=== PATIENT | female | born 1970 | race Caucasian/White ===

== ENCOUNTER 2023-08-21 16:44 | Emergency (ER) | payer OTHER, SELFPAY ==
--- NOTE | ~2023-08-21 | XR_ITS ---
EXAMINATION: XR FOOT, RIGHT CLINICAL INFORMATION: Fifth metatarsal pain COMPARISON: None available. TECHNIQUE: AP, lateral, and oblique views of the right foot. FINDINGS: There is a small calcaneal heel and retrocalcaneal enthesophytes. The ankle mortise and subtalar joints are normal. There is no visible acute fracture, dislocation or subluxation seen. The soft tissues are normal. XR/XR foot RT min 3V IMPRESSION: Small calcaneal heel and retrocalcaneal enthesophytes. No visible acute fracture, dislocation or subluxation seen.
[2023-08-21 17:13] VITALS: BP 146/78; PULSE 65; RESP 18; TEMP 35.9; O2SAT 95; BMI 28.7
--- NOTE | 2023-08-21 17:19 | ED.LOWEXIN ---
HPI - Extremity Injury (Lower) General Chief Complaint: Extremity Injury, Lower Stated Complaint: right foot pain no inj. Time Seen by Provider: 08/21/23 19:41 Source: patient Mode of arrival: ambulatory Limitations: no limitations History of Present Illness HPI Narrative: 52 yo female with PMH of surgery 2 years ago on the R ankle denies trauma but has severe pain to R 5th metatarsal without known injury x 2 days with swelling. No fevers, no redness. Hurts to touch and walk. She normally follows up with [facility] complaint: other (foot pain) Onset (ago): day(s) (2) Injury: Right: foot Place: home Severity: moderate Relieving factors: rest Exacerbating factors: weight bearing, movement and palpation Context: other (unknown) Associated symptoms: swelling Other symptoms: none Related Data Previous Rx's Medication Instructions Recorded morphine 15 mg immediate release 15 mg PO Q6H PRN pain #10 tabs 08/21/23 tablet Allergies Allergy/AdvReac Type Severity Reaction Status Date / Time No Known Allergies Allergy Verified 08/21/23 17:19 Review of Systems Review of Systems: Constitutional : No Fever, No Chills Cardiovascular : No Chest Pain, No SOB Respiratory : No Cough, No Dyspnea Gastrointestinal : No Nausea, No Vomiting, No Diarrhea, No abdominal Pain Genitourinary : No Dysuria, No Hematuria Musculoskeletal : positive joint pain, No Myalgias, pos Joint Swelling Skin : No Skin lacerations, No rash Neuro : No Weakness, No Numbness, No Loss of Consciousness, No Dizziness, No Headache Psych : No Anxiety/Panic, No Depression All other systems reviewed and are negative [facility] Past Medical History Attestation statement: The following information was validated with the patient. Source: old records reviewed Medical History Heel spur Surgical History History of ankle surgery Social History Social History Smoked in Last 30 Days: No Use of substances other than those prescribed or required for medical reasons: No Advance Directives: No Advance Directives Information Provided: No Physical Exam Vital Signs: Vital Signs: Last Vital Signs Temp 97 F 08/21/23 20:05 Pulse 59 08/21/23 20:05 Resp 16 08/21/23 20:05 BP 153/62 H 08/21/23 20:05 Pulse Ox 98 08/21/23 20:05 O2 Del Method Room Air 08/21/23 20:05 BMI result Body Mass Index 28.7 Appearance: Alert. Oriented X3. No acute distress. Eyes: Pupils equal, round and reactive to light. ENT: Pharynx normal. Neck: Normal inspection. Neck supple. CVS: Normal heart rate and rhythm. Pulses normal. Respiratory: No respiratory distress. Breath sounds normal. Abdomen: atraumatic Skin: Skin warm and dry. Normal skin color. Normal skin turgor. Extremities: No lower extremity edema. R lateral 5th metatarsal ttp no redness no warmth mild swelling noted - distal NV intact Neuro: Oriented X 3. No motor deficit. No sensory deficit. Course Course Course Narrative: This is an RME: Additional HPI, ROS, PE not included below will be deferred to primary provider. This is a 52-year-old female, with a history of CADASIL, presenting to the emergency department with complaints of right foot pain since today. She states that she stepped and immediately felt pain in her right 5th metatarsal. Tenderness to palpation in this area, ambulating with antalgic gait. Plan: X-ray right foot Medications Administered Discontinued Medications Generic Name Dose Route Start Last Admin Trade Name Freq PRN Reason Stop Dose Admin Acetaminophen 975 mg 08/21/23 19:57 08/21/23 20:03 Acetaminophen 325 Mg Tablet PO 08/21/23 19:58 975 mg ONCE ONE Administration Cyclobenzaprine HCl 10 mg 08/21/23 19:57 08/21/23 20:02 Cyclobenzaprine Hcl 10 Mg Tablet PO 08/21/23 19:58 10 mg ONCE ONE Administration Oxycodone HCl 10 mg 08/21/23 19:57 08/21/23 20:03 Oxycodone Hcl Immed Release 5 Mg Tablet PO 08/21/23 19:58 10 mg ONCE ONE Administration Medical Decision Making Medical Decision Making MDM Narrative: 52 yo female with PMH of R ankle surgery with [facility] 2 years ago comes in with isolated swelling and pain over distal 5th metatarsal at this time will need xray and pain contorl she is very ttp could be an occult fracture, flores's neuroma she is NV intact no signs of infection will treat pain and place in walking boot Differential Diagnosis Differential Diagnoses: The differential diagnosis associated with the presentation includes fracture, strain, neuroma Independent Interpretation I performed an independent interpretation of an: Plain X-Ray (no fx) Radiology Impression Discussion of test interpretation with radiology: I have reviewed the radiologist's reading. Prescription Management I considered prescription management with: Pain Medication Discharge Plan Discharge Clinical Impression: Acute pain of right foot Patient Disposition: Home, Self-Care Instructions: Arthralgia (ED) Additional Instructions: wear boot for comfort please follow up with your orthopedic doctor as soon as possible return for numbness weakness fevers redness or any other concerns FINDINGS: There is a small calcaneal heel and retrocalcaneal enthesophytes. The ankle mortise and subtalar joints are normal. There is no visible acute fracture, dislocation or subluxation seen. The soft tissues are normal. XR/XR foot RT min 3V IMPRESSION: Small calcaneal heel and retrocalcaneal enthesophytes. No visible acute fracture, dislocation or subluxation seen. Prescriptions: New morphine 15 mg tablet 15 mg PO Q6H PRN (Reason: pain) Qty: 10 0RF Rx Instructions: partial fill okay; Partial Fill upon patient request.
[2023-08-21] MEDS: Cyclobenzaprine HCl 10 MG TABLET PO (20:02)
[2023-08-21] MEDS: oxyCODONE HCl Immed Release 5 MG TABLET 10 MG PO (20:03)
[2023-08-21] MEDS: Acetaminophen 325 MG TABLET 975 MG PO (20:03)
[2023-08-21 20:05] VITALS: BP 153/62; PULSE 59; RESP 16; TEMP 36.1; O2SAT 98
--- NOTE | 2023-08-21 20:36 | PC.NURSE ---
applied walking boot. given paperwork. md mandujano signed boot paperwork. placed in [facility] paperwork bin.
== END 2023-08-21 20:49 | disposition home or self-care (01) ==
PROVIDERS: Emergency Provider Emergency Medicine
DX: M79.671 Pain in right foot (principal)
CPT/HCPCS: 73630; 99283; 99284